=== PATIENT | female | born 1985 | race Two or more races ===

== ENCOUNTER 2019-01-03 15:27 | Emergency (ER) | payer SELFPAY ==
[~2019-01-03] VITALS: Ht 162.6 cm; Wt 64.9 kg
--- NOTE | 2019-01-03 16:15 | NUR ---
PATIENT ARRIVED AT UNIT ACCOMPANIED BY SPOUSE WITH C/O DIZZINESS X 2DAYS. PT STS THAT ROOM SPINNING WHEN SHE GETS UP. NO ACUTE DISTRESS AT THIS TIME. AWAITING
[2019-01-03 16:25] LABS: BASOPHILS % (AUTO) 0.3 % (0.0-2.0); EOSINOPHILS % (AUTO) 0.9 % (0.0-6.0); HEMATOCRIT 41 % (33-45); HEMOGLOBIN 13.2 g/dL (11.5-14.8); LYMPHOCYTES # (AUTO) 1.8 /CMM (0.8-4.8); LYMPHOCYTES % (AUTO) 22.3 % (20.0-44.0); MEAN CORPUSCULAR HGB CONC 33 g/dl (31.0-36.0); MEAN CORPUSCULAR VOLUME 82 fL (82-100); MONOCYTES # (AUTO) 0.4 /CMM (0.1-1.30); MONOCYTES % (AUTO) 4.5 % (2.0-12.0); NEUTROPHILS # (AUTO) 5.7 /CMM (1.8-8.9); PLATELET COUNT (AUTO) 294 /CMM (150-450); RED BLOOD CELL COUNT(AUTO) 4.91 MIL/uL (4.0-5.2); WHITE BLOOD COUNT (AUTO) 7.9 K/uL (4.3-11.0)
[2019-01-03] MEDS ORDERED: IV NS 0.9% 1,000 ML BAG IV ONE (16:30)
[2019-01-03 16:38] LABS: CREATININE 0.8 mg/dL (0.6-1.3); POTASSIUM 4.4 mmol/L (3.5-5.1)
[2019-01-03] MEDS ORDERED: MECLIZINE HCL 25 MG TABLET PO ONE (17:00)
[2019-01-03 17:04] LABS: APPEARANCE,URINE Clear (CLEAR); BILIRUBIN,URINE Negative (NEGATIVE); BLOOD, URINE Negative Ery/uL (NEGATIVE); COLOR,URINE Yellow (YELLOW); KETONES,URINE Negative (NEGATIVE); LEUKOCYTE ESTERASE ,URINE Negative (NEGATIVE); NITRITE, URINE Negative (NEGATIVE); PROTEIN,URINE Negative (NEGATIVE); UGLUCOSE Negative (NEGATIVE); UROBILINOGEN,URINE 0.2 EU/dL (0.2)
[2019-01-03] MEDS ORDERED: MECLIZINE HCL 25 MG TABLET ONE (17:25)
--- NOTE | 2019-01-03 18:11 | NUR ---
Patient discharged to home in stable condition. Written and verbal after care instructions given. Patient verbalizes understanding of instruction. IV removed. Catheter intact and site benign. Pressure and 4x4 applied to site. No bleeding noted. Written prescription given to patient.
[2019-01-03 18:16] VITALS: BP 128/86
== END 2019-01-03 18:17 | disposition home or self-care (01) ==
LOC: ER 15:31
DX: H81.13 Benign paroxysmal vertigo, bilateral (principal); Z98.890 Other specified postprocedural states
CPT/HCPCS: 36415; 80048; 81001; 85025; 93005; 96360; 99284; J7030; J8597; 81000-TC